=== PATIENT | male | born 1955 | race Caucasian/White ===

== ENCOUNTER 2018-02-17 17:59 | Emergency (ER) | payer BC ==
--- NOTE | 2018-02-17 18:28 | EDM.PDOC ---
ED HPI GENERAL MEDICAL PROBLEM - General Chief Complaint: Syncope Stated Complaint: SYNCOPE/DIZZY Time Seen by Provider: 02/17/18 18:20 Source of Information: Reports: Patient History Limitations: Reports: No Limitations - History of Present Illness INITIAL COMMENTS - FREE TEXT/NARRATIVE: 62-year-old male presents to the ED after a near syncopal event. Patient states he started to feel very unwell around noon today. He developed pain between his shoulder blades and it hurt to breathe for a period of time. He states he never did pass out completely and never went down to the floor got hurt. Patient has a history of chronic severe sleep apnea. BiPAP at bedtime. Prior to this he had severe right-sided heart failure secondary to pulmonary hypertension caused by apnea. He also had a disease in his left lower lobe of lung which was unable to be biopsied or bronchoscope passed into this diseased area. Therefore he had a left lower lobar lobectomy several years ago. He states he had a leaky heart valve prior to going on BiPAP but since then it has improved. He is on Eliquis twice daily and he was put on hold of this last week and then started the next day. This was because of a severe nosebleed that lasted about 8 hours. Also hasn't bled since. He states he lost off a lot of blood however during this event. Is been lightheaded and dizzy upon standing and has to be careful how quickly he gets up. He reports he has not noticed any blood in his stool. He is very pallid in appearance and appears anemic. Onset: Today Onset Date: 02/17/18 Onset Time: 12:00 Duration: Hour(s): Location: Reports: Chest (Chest and mid back pain), Other (Near syncopal event.) Quality: Reports: Ache, Stabbing Severity: Moderate (No pain at rest.) Improves with: Reports: Rest Worsens with: Reports: Movement Context: Reports: Other. Denies: Activity, Exercise, Lifting, Sick Contact, Trauma Associated Symptoms: Reports: Chest Pain (More in his central back.), Loss of Appetite, Malaise, Shortness of Breath, Weakness (Generalized.). 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 (see below) (Only his usual medications no recent changes to medications other than Eliquis been placed on hold for 24 hours last ) Upper Back Pain Score (Numeric/FACES): 10 - Related Data Allergies Allergy/AdvReac Type Severity Reaction Status Date / Time Iodinated Contrast- Oral and Allergy Burning Verified 02/17/18 18:21 IV Dye [Iodinated Contrast Media - IV Dye] Home Meds: Home Meds Albuterol [Ventolin HFA] 1 puff INH Q4H PRN 12/21/14 [History] Apixaban [Eliquis] 5 mg PO BEDTIME 12/21/14 [History] Aspirin [Halfprin] 81 mg PO DAILY 12/21/14 [History] Diltiazem [Dilacor XR] 180 mg PO DAILY 12/21/14 [History] Formoterol/Mometasone [Dulera 100 MCG/5 MCG] 2 puff INH BID 12/21/14 [History] Furosemide 40 mg PO BID 12/21/14 [History] Hydrochlorothiazide/Lisinopril [Lisinopril-HCTZ 20-25 MG] 1 tab PO DAILY [History] Indomethacin [Indocin] 50 mg PO TID PRN 12/21/14 [History] Multivitamin [Multi-Vitamin Daily] 1 tab PO DAILY 12/21/14 [History] Simvastatin 40 mg PO BEDTIME 12/21/14 [History] Spironolactone [Aldactone] 25 mg PO DAILY 12/21/14 [History] Testosterone Cypionate [Depo-Testosterone] 1.5 ml IM ASDIRECTED 12/21/14 [ History] glipiZIDE [Glipizide ER] 5 mg PO DAILY 12/21/14 [History] prednisoLONE Acetate [Pred Forte 1% Ophth Susp] 1 drop EYEBOTH DAILY 12/21/14 [ History] sitaGLIPtin Phos/Metformin HCl [Janumet 50-1,000 MG] 1 tab PO BIDM 12/21/14 [ History] Past Medical History Cardiovascular History: Reports: Heart Failure, Other (See Below) (Had a leaky valve prior to going on BiPAP. Apparently the leaky valve is improved dramatically since he is on BiPAP. I'm unclear whether this was pulmonic insufficiency or tricuspid insufficiency. Appears that he had develops severe right-sided heart failure pulmonary hypertension due to sleep apnea syndrome which caused him to gain nearly 50 pounds with gross edema of his lower extremities. Currently down to 1 diuretic after being on 3 different ones.) Respiratory History: Reports: Sleep Apnea (Patient has severe sleep apnea and uses BiPAP at nighttime. 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 Currently works for [employer] [facility] - Review of Systems Review Of Systems: See Below Constitutional: Reports: Malaise, Weakness, Decreased Appetite. Denies: Fever, Chills, Weight Loss HEENT: Reports: Nosebleed (A nosebleed that lasted nearly 8 hours last Sunday , February 13.) Respiratory: Reports: Shortness of Breath, Other. Denies: Wheezing Cardiovascular: Reports: No Symptoms (Pain between his shoulder blades with walking.), Chest Pain (Central chest pain radiate through to his back on exertion.), Blood Pressure Problem, Dyspnea on Exertion (Chronic dependent edema both lower extremities), Edema, Lightheadedness, Palpitations ( much worse the last few days.). Denies: Claudication (He has borderline hypertension. He's never had very low blood pressure which is present at this time 84/26.), Orthopnea Endocrine: Reports: Fatigue, High Glucose (Current glucose is 254. B6 be checked this morning was 129.) GI/Abdominal: Reports: Decreased Appetite. Denies: Abdominal Pain, Anorexia, Black Stool, Bloody Stool, Constipation, Difficulty Swallowing, Distension, Flatus, Hematemesis, Melena : Reports: Frequency, Other (Nocturia 3) Musculoskeletal: Reports: Back Pain, Joint Pain (Knees hips and neck at times) Skin: Reports: Bruising (States a chain came back and struck him in the right arm causing the entire right upper arm to be bruised. It had nothing to do with current events today.), Other (He has a mottled appearance to both lower extremities. He states this is chronic due to his severe dependent edema and venous insufficiency in in the past with his pulmonary hypertension) Neurological: Reports: No Symptoms Psychiatric: Reports: No Symptoms Hematologic/Lymphatic: Reports: Easy Bruising (As he is on aliquots.) - Physical Exam Exam: See Below Exam Limited By: No Limitations General Appearance: Alert, WD/WN, No Apparent Distress, Other (Patient has extreme pallor and is obviously anemic.All margins are white.) Eye Exam: Bilateral Eye: Other (Propofol margins are completely white.) Throat/Mouth: Normal Inspection, Normal Lips, Normal Oropharynx Head Exam: Atraumatic, Normocephalic, Other (Ruborous facial complexion) Neck: Normal Inspection, Supple, Non-Tender, Full Range of Motion Respiratory/Chest: No Respiratory Distress, Lungs Clear, Normal Breath Sounds, Decreased Breath Sounds Cardiovascular: Normal Peripheral Pulses, No Murmur, Bradycardia (50/m) GI/Abdominal: Normal Bowel Sounds, Soft, Non-Tender, No Organomegaly, No Abnormal Bruit, No Mass, Pelvis Stable, Other (Abdominal girth limits ability to palpate solid organs.) Neuro Exam (Abbreviated): Alert, Oriented, CN II-XII Intact, Normal Cognition Back Exam: Normal Inspection, Full Range of Motion. No: CVA Tenderness (L), CVA Tenderness (R) Extremities: Pedal Edema (2-3+ pitting edema both lower extremities with venous insufficiency dermatitis evident.), Mottled (Mildly mottled.), Other (His lower extremities are somewhat cool to palpation but they're not cold.) Skin Exam: Cool (Extreme pallor. Her extremities.), Pallor EKG INTERPRETATION EKG Date: 02/17/18 Time: 18:15 Rhythm: Other Rate (Beats/Min): 54 [place]: Normal P-Wave: Variable (Inverted in lead V6. First-degree AV block) QRS: Other (There is decreased voltage in both limb and precordial leads.) ST-T: Other (Wondering baseline in leads !,3 AND avl precluded their use for interpretation. There is a repolarization abnormality skewing the baseline inferiorly particularly leads V2 and V3. Cannot rule out ischemia 100%) QT: Prolonged (Prolonged for rate.) EKG Interpretation Comments: Abnormal ECG Course - Vital Signs Last Recorded V/S: Last Vital Signs Temp 36.8 C 02/17/18 20:19 Pulse 58 L 02/17/18 20:19 Resp 22 H 02/17/18 20:19 BP 102/69 02/17/18 20:19 Pulse Ox 98 02/17/18 20:19 - Orders/Labs/Meds Orders: Active Orders 24 hr Category Date Time Status EKG Documentation Completion [RC] STAT Care 02/17/18 18:21 Active RT Aerosol Therapy [RC] ASDIRECTED Care 02/17/18 19:42 Active Chest 1V Frontal [CR] Stat Exams 02/17/18 19:45 Taken PACKED CELLS [RED BLOOD CELLS LP] [BBK] Stat Lab 02/17/18 18:25 Results PATIENT RETYPE [BBK] Stat Lab 02/17/18 18:25 Results TYPE AND SCREEN [BBK] Stat Lab 02/17/18 18:25 Results Sodium Chloride 0.9% [Normal Saline] 1,000 ml Med 02/17/18 18:30 Active IV ASDIRECTED Sodium Chloride 0.9% [Normal Saline] 250 ml Med 02/17/18 20:00 Active IV ASDIRECTED Sodium Chloride 0.9% [Normal Saline] 250 ml Med 02/17/18 20:00 Active IV ASDIRECTED Transfuse Red Blood Cells [COMM] Stat Oth 02/17/18 18:23 Ordered Medication Orders Sodium Chloride (Normal Saline) 1,000 mls @ 999 mls/hr IV ASDIRECTED JANEL Last Admin: 02/17/18 18:54 Dose: 999 mls/hr Sodium Chloride (Normal Saline) 250 mls @ 5 mls/hr IV ASDIRECTED JANEL Sodium Chloride (Normal Saline) 250 mls @ 5 mls/hr IV ASDIRECTED JANEL Labs: Laboratory Tests 02/17/18 02/17/18 02/17/18 Range/Units 18:17 18:25 18:25 WBC 7.19 (4.23-9.07) K/mm3 RBC 1.66 L (4.63-6.08) M/mm3 Hgb 5.5 L* (13.7-17.5) gm/L Hct 17.8 L (40.1-51.0) % MCV 107.2 H (79.0-92.2) fl MCH 33.1 H (25.7-32.2) pg MCHC 30.9 L (32.2-35.5) g/dl RDW Std Deviation 56.8 H (35.1-43.9) fL Plt Count 176 (163-337) K/mm3 MPV 10.3 (9.4-12.3) fl Neutrophils % (Manual) 78 H (40-60) % Band Neutrophils % 0 (0-10) % Lymphocytes % (Manual) 15 L (20-40) % Atypical Lymphs % 0 % Monocytes % (Manual) 5 (2-10) % Eosinophils % (Manual) 1 (0.8-7.0) % Basophils % (Manual) 1 (0.2-1.2) Toxic Granulation Moderate Platelet Estimate Adequate Polychromasia 1+ slight Poikilocytosis 1+ slight Anisocytosis 2+ moderate Macrocytosis 2+ moderate Ovalocytes 1+ slight RBC Morph Comment Not Reportable PT (9.5-12.1) SECONDS INR D-Dimer, Quantitative (0.19-0.50) mg/L Sodium 134 L (136-145) mEq/L Potassium 6.8 H* (3.5-5.1) mEq/L Chloride 104 (98-107) mEq/L Carbon Dioxide 17 L (21-32) mEq/L Anion Gap 19.8 H (5-15) BUN 101 H (7-18) mg/dL Creatinine 5.0 H (0.7-1.3) mg/dL Est Cr Clr Drug Dosing 15.41 mL/min Estimated GFR (MDRD) 12 (>60) mL/min BUN/Creatinine Ratio 20.2 H (14-18) Glucose 214 H (80-115) mg/dL POC Glucose 249 H (80-115) mg/dL Calcium 8.5 (8.5-10.1) mg/dL Magnesium 2.2 (1.8-2.4) mg/dl Total Bilirubin 0.3 (0.2-1.0) mg/dL AST 25 (15-37) U/L ALT 29 (16-63) U/L Alkaline Phosphatase 76 (46-116) U/L CK-MB (CK-2) 5.6 H (0-3.6) ng/ml Troponin I 0.018 (0.00-0.056) ng/mL C-Reactive Protein 1.3 H* (<1.0) mg/dL NT-Pro-B Natriuret Pep (0-125) pg/mL Total Protein 6.2 L (6.4-8.2) g/dl Albumin 3.3 L (3.4-5.0) g/dl Globulin 2.9 gm/dL Albumin/Globulin Ratio 1.1 (1-2) Blood Type Gel Antibody Screen Crossmatch 02/17/18 02/17/18 02/17/18 Range/Units 18:25 18:25 18:25 WBC (4.23-9.07) K/mm3 RBC (4.63-6.08) M/mm3 Hgb (13.7-17.5) gm/L Hct (40.1-51.0) % MCV (79.0-92.2) fl MCH (25.7-32.2) pg MCHC (32.2-35.5) g/dl RDW Std Deviation (35.1-43.9) fL Plt Count (163-337) K/mm3 MPV (9.4-12.3) fl Neutrophils % (Manual) (40-60) % Band Neutrophils % (0-10) % Lymphocytes % (Manual) (20-40) % Atypical Lymphs % % Monocytes % (Manual) (2-10) % Eosinophils % (Manual) (0.8-7.0) % Basophils % (Manual) (0.2-1.2) Toxic Granulation Platelet Estimate Polychromasia Poikilocytosis Anisocytosis Macrocytosis Ovalocytes RBC Morph Comment PT 11.1 (9.5-12.1) SECONDS INR 1.02 D-Dimer, Quantitative 0.96 H (0.19-0.50) mg/L Sodium (136-145) mEq/L Potassium (3.5-5.1) mEq/L Chloride (98-107) mEq/L Carbon Dioxide (21-32) mEq/L Anion Gap (5-15) BUN (7-18) mg/dL Creatinine (0.7-1.3) mg/dL Est Cr Clr Drug Dosing mL/min Estimated GFR (MDRD) (>60) mL/min BUN/Creatinine Ratio (14-18) Glucose (80-115) mg/dL POC Glucose (80-115) mg/dL Calcium (8.5-10.1) mg/dL Magnesium (1.8-2.4) mg/dl Total Bilirubin (0.2-1.0) mg/dL AST (15-37) U/L ALT (16-63) U/L Alkaline Phosphatase (46-116) U/L CK-MB (CK-2) (0-3.6) ng/ml Troponin I (0.00-0.056) ng/mL C-Reactive Protein (<1.0) mg/dL NT-Pro-B Natriuret Pep (0-125) pg/mL Total Protein (6.4-8.2) g/dl Albumin (3.4-5.0) g/dl Globulin gm/dL Albumin/Globulin Ratio (1-2) Blood Type B NEGATIVE Gel Antibody Screen Negative Crossmatch See Detail 02/17/18 Range/Units 18:25 WBC (4.23-9.07) K/mm3 RBC (4.63-6.08) M/mm3 Hgb (13.7-17.5) gm/L Hct (40.1-51.0) % MCV (79.0-92.2) fl MCH (25.7-32.2) pg MCHC (32.2-35.5) g/dl RDW Std Deviation (35.1-43.9) fL Plt Count (163-337) K/mm3 MPV (9.4-12.3) fl Neutrophils % (Manual) (40-60) % Band Neutrophils % (0-10) % Lymphocytes % (Manual) (20-40) % Atypical Lymphs % % Monocytes % (Manual) (2-10) % Eosinophils % (Manual) (0.8-7.0) % Basophils % (Manual) (0.2-1.2) Toxic Granulation Platelet Estimate Polychromasia Poikilocytosis Anisocytosis Macrocytosis Ovalocytes RBC Morph Comment PT (9.5-12.1) SECONDS INR D-Dimer, Quantitative (0.19-0.50) mg/L Sodium (136-145) mEq/L Potassium (3.5-5.1) mEq/L Chloride (98-107) mEq/L Carbon Dioxide (21-32) mEq/L Anion Gap (5-15) BUN (7-18) mg/dL Creatinine (0.7-1.3) mg/dL Est Cr Clr Drug Dosing mL/min Estimated GFR (MDRD) (>60) mL/min BUN/Creatinine Ratio (14-18) Glucose (80-115) mg/dL POC Glucose (80-115) mg/dL Calcium (8.5-10.1) mg/dL Magnesium (1.8-2.4) mg/dl Total Bilirubin (0.2-1.0) mg/dL AST (15-37) U/L ALT (16-63) U/L Alkaline Phosphatase (46-116) U/L CK-MB (CK-2) (0-3.6) ng/ml Troponin I (0.00-0.056) ng/mL C-Reactive Protein (<1.0) mg/dL NT-Pro-B Natriuret Pep 973 H (0-125) pg/mL Total Protein (6.4-8.2) g/dl Albumin (3.4-5.0) g/dl Globulin gm/dL Albumin/Globulin Ratio (1-2) Blood Type Gel Antibody Screen Crossmatch Meds: Medications Generic Name Dose Route Start Last Admin Trade Name Freq PRN Reason Stop Dose Admin Sodium Chloride 1,000 mls @ 999 mls/hr 02/17/18 18:30 02/17/18 18:54 Normal Saline IV 999 mls/hr ASDIRECTED JANEL Administration Sodium Chloride 250 mls @ 5 mls/hr 02/17/18 20:00 Normal Saline IV ASDIRECTED JANEL Sodium Chloride 250 mls @ 5 mls/hr 02/17/18 20:00 Normal Saline IV ASDIRECTED JANEL Discontinued Medications Generic Name Dose Route Start Last Admin Trade Name Freq PRN Reason Stop Dose Admin Albuterol 7.5 mg 02/17/18 19:40 02/17/18 19:51 Proventil Neb Soln NEB 02/17/18 19:41 7.5 mg ONETIME ONE Administration Calcium Gluconate 1 gm 02/17/18 19:42 02/17/18 20:10 Calcium Gluconate IVPUSH 02/17/18 19:43 1 gm ONETIME ONE Administration Dextrose/Water 25 ml 02/17/18 19:32 02/17/18 20:10 Dextrose 50% In Water IVPUSH 02/17/18 19:33 25 ml ONETIME ONE Administration Furosemide 40 mg 02/17/18 19:45 02/17/18 20:10 Lasix IVPUSH 02/17/18 19:46 40 mg NOW ONE Administration Sodium Chloride Confirm 02/17/18 19:57 Normal Saline Administered 02/17/18 19:58 Dose 500 mls @ as directed .ROUTE .STK-MED ONE Insulin Human Regular 10 unit 02/17/18 19:32 02/17/18 20:09 Humulin R IV 02/17/18 19:33 10 units ONETIME ONE Administration Sodium Polystyrene Sulfonate 30 gm 02/17/18 19:33 02/17/18 20:09 Kayexalate PO 02/17/18 19:34 30 gm ONETIME ONE Administration - Radiology Interpretation Free Text/Narrative:: 62-year-old male presents the ED for evaluation after near syncopal event about noon today. He reports that he had an 8 hour nosebleed which was severe on Sunday, January. He is on Eliquis and his medication was put on hold for for one day only. Patient has a complex history of previous disease left lower lobe of lung requiring resection of this lobe. 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 Prior to this he had gained 50 pounds of weight due to severe pulmonary hypertension induced by syndrome. He had a leaky valve is not sure which one but I suspect pulmonic. This improved after he was placed on BiPAP and he is currently only on one diuretic at this time. He states since his severe nosebleed he has felt lightheaded dizzy whenever he stands. He nearly passed out today due to generalized weakness. Has not noticed any blood in his stool. On examination the patient is extremely pallid with I suspect a hemoglobin of around 5. His blood pressure is 84/52. He has never known to have this low blood pressure. Bedside blood sugar was 254. Patient has no contraindications to receiving blood transfusions. He was crossmatch therefore 4 units of packed cells. It appears that his blood loss was likely from his severe nosebleed although I cannot prove this at this point time. He is complaining of pain between his shoulder blades when he is up and about but not at rest. This may be an angina equivalent due to severe anemia. Routine labs ordered as well as cardiac markers and a d-dimer. The d-dimer is likely going to be positive because of recent nosebleed. One view chest x-ray to be obtained. Nurses felt that his lower extremities are cool and that he was mottled. In fact his lower extremities show evidence of venous insufficiency dermatitis from severe chronic edema. He states he gained 50 pounds of fluid which is been relieved by diuresis and improved after going on sleep apnea treatment with BiPAP. Leaky valve apparently is no longer leaking. Therefore he must have had severe pulmonary hypertension secondary to sleep apnea syndrome. That it made his lower extremities are cool to touch but still have adequate circulation. He has marked bruising of his right upper extremity has a chain broke and struck him there at work. Due to being on Eliquis the entire right arm is bruised and swollen but nonpainful. - Re-Assessments/Exams Free Text/Narrative Re-Assessment/Exam: 02/17/18 18:51 Lab called over and indicates his hemoglobin is 5.5. Chest x- ray done portably reveals moderate cardiomegaly. The film is rotated to the left making the left hilar area more prominent than normal. There does appear to be diffuse vascular congestion. No pleural effusions no pneumothorax no pulmonary infiltrates. 02/17/18 19:30 Labs are starting to come back. Total white count is 7.19. 70% neutrophils no bands noted. Hemoglobin is very low at 5.5 with a hematocrit of 17.8. MCV is elevated at 107.2. Platelet count is 176,000. PT is 11.1 with an INR 1.02. D-dimer is elevated at 0.96. This would not be unexpected since he's had since a trophic nosebleed a few days ago with clotting.. Sodium is low at 134. Potassium is elevated at 6.8. Chloride is 104 with a bicarbonate of 17. Anion gap is elevated at 19.8. BUN is 101 with a creatinine of 5.0. Therefore suffering acute renal insufficiency or failure. GFR is only 12. This is stage V kidney disease. Glucose in the lab is 214 was 249 at the bedside. Calcium was 8.5 with a magnesium of 2.2. Bilirubin is 0.3. AST is 25 ALT is 29 alk phosphatase is 76. CK-MB fraction is 5.6. Troponin is normal at 0.018. C- reactive protein is 1.3. BNP is elevated at 973. Total protein is 6.2 with an albumin fraction of 3.3. Patient will need treatment for his hyperkalemia. .He will be given oral Kayexalate 30 g. He was received 7.5mg of albuterol. He also received calcium gluconate 1 g IV. He will be given 10 units of insulin intravenously and a half an amp of D50 percent.(25mls). He will also be given calcium gluconate 1 g IV. His blood will be started as soon as possible. Tentatively I plan on giving him Lasix 40 mg IV now although he is already on it twice a day orally. Has been voiding normally. For the exact cause of his acute exacerbation of renal insufficiency is unclear other than being severely anemic. It's impossible to know what his hemoglobin was before he developed a severe nosebleed last week. I've advised the patient that he will have to go to [place] as he may well end up requiring dialysis treatment. He receives all of his care through the [facility] in [place] and I will therefore contact them in this regard. 02/17/18 19:59 his blood is now available. Will therefore start a unit in each arm so as to utilize the blood because all 4 units will not able to be transfused prior to transfer to [place]. The lab to put 2 units back. 02/17/18 20:21 spoke to [facility] call system with ER physician Dr. Woods and he is accepted care of this patient. He will be stopped in the ED and further assessed then decision made as to placement. We will arrange for ground transportation as soon as possible. Departure - Departure Time of Disposition: 20:41 Disposition: DC/Tfer to Acute Hospital 02 Condition: Serious Clinical Impression: Hyperkalemia, Chronic renal insufficiency, stage V, Severe obstructive sleep apnea-hypopnea syndrome, Valvular heart disease Anemia Qualifiers: Anemia type: other cause Other causes of anemia: acute posthemorrhagic Qualified Code(s): D62 - Acute posthemorrhagic anemia Type 2 diabetes mellitus Qualifiers: Diabetes mellitus instructional technology coordinator insulin use: without instructional technology coordinator use Diabetes mellitus complication status: with kidney complications Diabetes mellitus complication detail: with nephropathy Qualified Code(s): E11.21 - Type 2 diabetes mellitus with diabetic nephropathy Congestive heart failure Qualifiers: Heart failure type: diastolic Heart failure chronicity: acute on chronic Qualified Code(s): I50.33 - Acute on chronic diastolic (congestive) heart failure - Discharge Information Referrals: Alin Lyle Jr, MD [Primary Care Provider] - Forms: ED Department Discharge - My Orders Last 24 Hours: My Active Orders 02/17/18 18:21 EKG Documentation Completion [RC] STAT 02/17/18 18:23 Transfuse Red Blood Cells [COMM] Stat 02/17/18 18:25 PACKED CELLS [RED BLOOD CELLS LP] [BBK] Stat PATIENT RETYPE [BBK] Stat TYPE AND SCREEN [BBK] Stat 02/17/18 18:30 Sodium Chloride 0.9% [Normal Saline] 1,000 ml IV ASDIRECTED 02/17/18 19:42 RT Aerosol Therapy [RC] ASDIRECTED 02/17/18 19:45 Chest 1V Frontal [CR] Stat 02/17/18 20:00 Sodium Chloride 0.9% [Normal Saline] 250 ml IV ASDIRECTED Sodium Chloride 0.9% [Normal Saline] 250 ml IV ASDIRECTED - Assessment/Plan Last 24 Hours: My Active Orders 02/17/18 18:21 EKG Documentation Completion [RC] STAT 02/17/18 18:23 Transfuse Red Blood Cells [COMM] Stat 02/17/18 18:25 PACKED CELLS [RED BLOOD CELLS LP] [BBK] Stat PATIENT RETYPE [BBK] Stat TYPE AND SCREEN [BBK] Stat 02/17/18 18:30 Sodium Chloride 0.9% [Normal Saline] 1,000 ml IV ASDIRECTED 02/17/18 19:42 RT Aerosol Therapy [RC] ASDIRECTED 02/17/18 19:45 Chest 1V Frontal [CR] Stat 02/17/18 20:00 Sodium Chloride 0.9% [Normal Saline] 250 ml IV ASDIRECTED Sodium Chloride 0.9% [Normal Saline] 250 ml IV ASDIRECTED
[2018-02-17] MEDS ORDERED: Sodium Chloride 0.9% 1,000 ML IV SCH (18:30)
[2018-02-17] MEDS ORDERED: Insulin Regular, Human 100 Units/ML 3 ML Vial IV ONE (19:32)
[2018-02-17] MEDS ORDERED: 50% Dextrose in Water 50 ML Syringe IVPUSH ONE (19:32)
[2018-02-17] MEDS ORDERED: Sodium Polystyrene Sulfonate 15 GM/60 ML Susp 60 ML Bot PO ONE (19:33)
[2018-02-17] MEDS ORDERED: Albuterol 0.083% 2.5 MG/3 ML Neb Soln NEB ONE (19:40)
[2018-02-17] MEDS ORDERED: Calcium Gluconate 10% 1 GM/10 ML SDV IVPUSH ONE (19:42)
[2018-02-17] MEDS ORDERED: Furosemide 40 MG/4 ML VIAL IVPUSH ONE (19:45)
[2018-02-17] MEDS ORDERED: Sodium Chloride 0.9% 500 ML ONE (19:57)
[2018-02-17] MEDS ORDERED: Sodium Chloride 0.9% 250 ML IV SCH ×2 (20:00)
[2018-02-17 20:36] VITALS: BP 102/68
--- NOTE | 2018-02-18 07:27 | CR ---
Chest: Portable view of the chest was obtained. Comparison: No prior chest x-ray. Heart size is slightly enlarged. Tortuous thoracic aorta is seen. Atelectasis or scarring is seen behind the left heart. Central lung markings are increased most likely due to mild chronic pulmonary vascular congestion. Bony structures are grossly intact. Impression: 1. Slightly enlarged heart with increased pulmonary vessels most likely chronic. 2. Other findings felt to be incidental. Diagnostic code #2
== END 2018-02-17 20:50 ==
LOC: JD.ED 17:59
DX: I50.33 Acute on chronic diastolic (congestive) heart failure (principal); G47.33 Obstructive sleep apnea (adult) (pediatric); E87.5 Hyperkalemia; E11.22 Type 2 diabetes mellitus with diabetic chronic kidney disease; N18.5 Chronic kidney disease, stage 5; D62 Acute posthemorrhagic anemia; E11.21 Type 2 diabetes mellitus with diabetic nephropathy; Z91.041 Radiographic dye allergy status; Z79.82 Long term (current) use of aspirin; Z79.899 Other long term (current) drug therapy
CPT/HCPCS: 36415; 36430; 71045; 80053; 82553; 82962; 83735; 83880; 84484; 85007; 85027; 85379; 85610; 86140; 86850; 86900; 86901; 86922; 93005; 94640; 96361; 96374; 96375; 99285; A9270; J0610; J1815; J1940; J7040; J7050; J7060; P9016

== ENCOUNTER 2023-06-28 07:40 | Day surgery (SDC) | payer BC, MEDICARE ==
[~2023-06-28 07:40] MED LIST: Lactated Ringers 1,000 ML IV SCH; Sodium Chloride 0.9% 10 ML Syringe FLUSH PRN; Sodium Chloride 0.9% 10 ML Syringe FLUSH SCH
[2023-06-28] MEDS ORDERED: Sodium Chloride 0.9% 1,000 ML IV SCH (07:45)
[2023-06-28] MEDS ORDERED: Ondansetron 4 MG/2 ML SDV IVPUSH PRN (08:44)
[2023-06-28] MEDS ORDERED: Midazolam 1 MG/ML 2 ML SDV ONE (08:50)
[2023-06-28] MEDS ORDERED: Lidocaine 1% 2 ML ONE (08:50)
[2023-06-28] MEDS ORDERED: Propofol 200 MG/20 ML SDV ONE ×2 (08:51)
[2023-06-28 15:35] VITALS: BP 120/70; PULSE 80
== END 2023-06-28 11:05 | disposition home or self-care (01) ==
LOC: JD.SDS 07:40
PROVIDERS: ATTEND Family Medicine
DX: Z12.11 Encounter for screening for malignant neoplasm of colon (principal); D12.0 Benign neoplasm of cecum; D12.2 Benign neoplasm of ascending colon; D12.5 Benign neoplasm of sigmoid colon; E11.65 Type 2 diabetes mellitus with hyperglycemia; E78.2 Mixed hyperlipidemia; F41.9 Anxiety disorder, unspecified; M1A.00X0 Idiopathic chronic gout, unspecified site, without tophus (tophi); G47.33 Obstructive sleep apnea (adult) (pediatric); I13.0 Hypertensive heart and chronic kidney disease with heart failure and stage 1 through stage 4 chronic kidney disease, or unspecified chronic kidney disease; E11.22 Type 2 diabetes mellitus with diabetic chronic kidney disease; I50.9 Heart failure, unspecified; N18.4 Chronic kidney disease, stage 4 (severe); E66.9 Obesity, unspecified; Z94.7 Corneal transplant status; Z79.85 Long-term (current) use of injectable non-insulin antidiabetic drugs; Z79.899 Other long term (current) drug therapy; Z79.84 Long term (current) use of oral hypoglycemic drugs; Z91.041 Radiographic dye allergy status; Z87.891 Personal history of nicotine dependence; Z91.013 Allergy to seafood; Z79.01 Long term (current) use of anticoagulants
CPT/HCPCS: 45385; 82947; J2250; J2704; J7030; 00811; 88305; J3490